=== PATIENT | female | born 1955 | race Two or more races ===

== ENCOUNTER 2024-05-06 10:24 | Outpatient (RCR) | payer MEDICARE, BC, SELFPAY ==
--- NOTE | 2024-05-06 12:51 | PT.OIERPT ---
PT OP Initial Eval Patient Information Outpatient Physical Therapy Treatment Date: 05/06/24 Visit Reasons: Right ring finger surgery Medical Diagnosis: M19.041 Treatment Dx #1: Right Ring Finger Mobility Defcits Treatment Dx #2: Right Hand Weakness Start of Care: 05/06/24 Date of Onset: 03/12/24 Smoking Status Smoking Status: Never smoker Initial Assessment Subjective: Pt is a 68 y/o female s/p right ring finger fusion and cyst removal 03/12/24. Pt still has pain (6/10) with activities. Pt has limitation with gripping, lifting, chores, self care, cooking, cleaning, and performing recreational activities. Objective: Right Wrist AROM: all motions are WNL Right 4th Digit AROM MCP: 69 deg PIP: -46 deg DIP: neutral Liaison Officer Strength L: 63 lbs R: 51 lbs Right Wrist MMTs: grossly 3+/5 Assessment: Pt demonstrate right hand mobility and strength deficits s/p ring finger fusion leading to difficulty with ADLs. Pt will benefit from physical therapy to increase ROM, strength, and work on hand dexterity. Short Term and Senior Living Goals 1) Increase right 4th digit flexion AROM WFL in 6 wks to be able to make a fist 2) Increase right solar pool heating installer strength to 55 lbs in 6 wks to be able to perform chores 3) Decrease hand pain to 2/10 in 6 wks to be able to perform recreational activities 4) Increase right wrist MMTs grossly to 4/5 in 6 wks to be able to perform self care activities 5) Indep with HEP Treatment Plan 1) Manual Therapy 2) Therapeutic Activities 3) Therapeutic Exercises 4) Modalities (ice, heat) Frequency and Duration: 2 x wk for 6 wks Certification Dates: 05/06/24 to 08/06/24 Procedure Charges OP PT Eval Mod Complex 30 minutes: Yes
== END 2024-05-11 23:59 | disposition home or self-care (01) ==
LOC: CPTX 10:24
DX: M79.644 Pain in right finger(s) (principal); R53.1 Weakness; Z98.890 Other specified postprocedural states; M19.041 Primary osteoarthritis, right hand
CPT/HCPCS: 97162

== ENCOUNTER 2024-05-30 10:30 | Outpatient (RCR) | payer MEDICARE, BC, SELFPAY ==
--- NOTE | 2024-05-14 10:39 | PT.ODAYNRPT ---
PT Outpatient Daily Note OP Daily Note Outpatient Physical Therapy Treatment Date: 05/14/24 Visit Reasons: RIGHT RING FINER SURGERY Subjective: Pt's hand turned black and blue over the weekend due to excessive cleaning and cooking from thanksgiving. Objective: Please see flow chart for list of ther ex performed Assessment: tolerate exercises performed today. cues to incorporate 4th digit with all hand exercises to improve mobility Plan: Continue with PT Length of Time (minutes) of Treatment: 30 Minutes Procedure Charges Therapeutic Exercise 30 minutes: Yes
--- NOTE | 2024-05-16 11:39 | PTNOTE_ITS ---
PT Outpatient Daily Note OP Daily Note Outpatient Physical Therapy Treatment Date: 05/16/24 Visit Reasons: RIGHT RING FINER SURGERY Subjective: Pt reports R finger stiffness and pain. Objective: Please see flow sheet for ther ex list. Assessment: Performed PROM to 4th digit of R hand into flexion, mobility limited due to pain response. Plan: Continue with POc. Length of Time (minutes) of Treatment: 30 Minutes COMPRESSED GAS EQUIPMENT MECHANIC Service Modifier Method I: Divide the number of min of care provided by the COMPRESSED GAS EQUIPMENT MECHANIC/LELO by the total min of care provided then multiply by 100. If greater than 11 percent modifier is required. Method II: Divide the total time of care provided to patient by 10 (round to the nearest whole number) and add 1 min. to set the minimum time requirement. If treatment total was 60 min., then 10% of 6 min PT CQ modifier applied: CQ Modifier applied Procedure Charges Therapeutic Exercise 30 minutes: Yes
--- NOTE | 2024-05-21 09:55 | PTNOTE_ITS ---
PT Outpatient Daily Note OP Daily Note Outpatient Physical Therapy Treatment Date: 05/21/24 Visit Reasons: RIGHT RING FINER SURGERY Subjective: Pt's finger feels better. Pt notice she can hold light objects longer. Objective: Please see flow chart for list of ther ex performed Assessment: progressing patient to higher resistance with all hand exercises with good t olerance. Minimal changes with 4th digit PIP flexion AROM Plan: Continue with PT Length of Time (minutes) of Treatment: 30 Minutes Procedure Charges Therapeutic Exercise 30 minutes: Yes
--- NOTE | 2024-05-23 11:36 | PT.ODAYNRPT ---
PT Outpatient Daily Note OP Daily Note Outpatient Physical Therapy Treatment Date: 05/23/24 Visit Reasons: RIGHT RING FINER SURGERY Subjective: Pt reports finger was sore after last session. Objective: Please see flow sheet for ther ex list. Assessment: Interventions completed with short rest breaks in between exercise to accommodate reported soreness. Plan: Continue with POC. Length of Time (minutes) of Treatment: 30 Minutes TURRET LATHE SET UP OPERATOR Service Modifier Method I: Divide the number of min of care provided by the TURRET LATHE SET UP OPERATOR/LELO by the total min of care provided then multiply by 100. If greater than 11 percent modifier is required. Method II: Divide the total time of care provided to patient by 10 (round to the nearest whole number) and add 1 min. to set the minimum time requirement. If treatment total was 60 min., then 10% of 6 min PT CQ modifier applied: CQ Modifier applied Procedure Charges Therapeutic Exercise 30 minutes: Yes
--- NOTE | 2024-05-28 11:41 | PT.ODAYNRPT ---
PT Outpatient Daily Note OP Daily Note Outpatient Physical Therapy Treatment Date: 05/28/24 Visit Reasons: RIGHT RING FINER SURGERY Subjective: Pt c/o finger stiffness. Objective: Please see flow sheet for ther ex list. Assessment: High pain response with PROM. Plan: Continue with pOC. Length of Time (minutes) of Treatment: 30 Minutes EMBOSSING CALENDER OPERATOR Service Modifier Method I: Divide the number of min of care provided by the EMBOSSING CALENDER OPERATOR/SECURITY SYSTEMS ENGINEER by the total min of care provided then multiply by 100. If greater than 11 percent modifier is required. Method II: Divide the total time of care provided to patient by 10 (round to the nearest whole number) and add 1 min. to set the minimum time requirement. If treatment total was 60 min., then 10% of 6 min PT CQ modifier applied: CQ Modifier applied Procedure Charges Therapeutic Exercise 30 minutes: Yes
--- NOTE | 2024-05-30 11:00 | PT.ODAYNRPT ---
PT Outpatient Daily Note OP Daily Note Outpatient Physical Therapy Treatment Date: 05/30/24 Visit Reasons: RIGHT RING FINER SURGERY Subjective: Pt reports finger felt more flexible after last session. Objective: Please see flow sheet for ther ex list. Assessment: Pt demonstrated improved tolerance with PROM of R 4th digit today. Plan: Continue with poC. Length of Time (minutes) of Treatment: 30 Minutes AUDIOVISUAL AIDS TECHNICIAN Service Modifier Method I: Divide the number of min of care provided by the AUDIOVISUAL AIDS TECHNICIAN/CEMENT FINISHER HELPER by the total min of care provided then multiply by 100. If greater than 11 percent modifier is required. Method II: Divide the total time of care provided to patient by 10 (round to the nearest whole number) and add 1 min. to set the minimum time requirement. If treatment total was 60 min., then 10% of 6 min PT CQ modifier applied: CQ Modifier applied Procedure Charges Therapeutic Exercise 30 minutes: Yes
== END 2024-06-11 23:59 | disposition home or self-care (01) ==
LOC: CPTX 10:30
DX: M79.644 Pain in right finger(s) (principal); R53.1 Weakness; Z98.890 Other specified postprocedural states
CPT/HCPCS: 97110

== ENCOUNTER 2024-07-04 10:30 | Outpatient (RCR) | payer MEDICARE, BC, SELFPAY ==
--- NOTE | 2024-06-13 11:12 | PT.ODAYNRPT ---
PT Outpatient Daily Note OP Daily Note Outpatient Physical Therapy Treatment Date: 06/13/24 Visit Reasons: Right ring finger surgery Subjective: Pt reports of slight improvement with finger ROM, however, still stiff at the surgical site. Pt has been able to start light cleaning and cooking with less limitation Objective: Right 4th Digit MCP and DIP flexion AROM: WFL Assessment: Pt educated that PROM in the 4th digit at this time will not be beneficial due to demonstrating functional ROM. Pt's continue limitation his at the PIP joint, however, joint mob and aggressive stretch should not be performed at this time due to possible irritation of the fusion. Pt gave verbal understanding. Pt's progress with ROM and strength is slow. Plan: Continue with PT Length of Time (minutes) of Treatment: 30 Minutes Procedure Charges Therapeutic Exercise 30 minutes: Yes
--- NOTE | 2024-06-18 11:51 | PT.ODAYNRPT ---
PT Outpatient Daily Note OP Daily Note Outpatient Physical Therapy Treatment Date: 06/18/24 Visit Reasons: Right ring finger surgery Subjective: Pt reports ring finger is stiff, making some progress with movement. Objective: Please see flow sheet for ther ex list. Assessment: Pt progress with ROm of PIP slow due to fusion but MCP and DIP ROM continue to improve. Plan: Continue with pOC. Length of Time (minutes) of Treatment: 30 Minutes STEAM AND GAS TURBINES ASSEMBLER Service Modifier Method I: Divide the number of min of care provided by the STEAM AND GAS TURBINES ASSEMBLER/INDUSTRIAL PSYCHOLOGY PROFESSOR by the total min of care provided then multiply by 100. If greater than 11 percent modifier is required. Method II: Divide the total time of care provided to patient by 10 (round to the nearest whole number) and add 1 min. to set the minimum time requirement. If treatment total was 60 min., then 10% of 6 min PT CQ modifier applied: CQ Modifier applied Procedure Charges Therapeutic Exercise 30 minutes: Yes
--- NOTE | 2024-06-25 11:14 | PTNOTE_ITS ---
PT Outpatient Daily Note OP Daily Note Outpatient Physical Therapy Treatment Date: 06/25/24 Visit Reasons: Right ring finger surgery Subjective: Pt reports R finger is doing ok, notices flexibility is improving with bending on distal and proximal joint on ring finger. Objective: Please see flow sheet for ther ex list. Assessment: Performed scar mobs, minimal TTP. Plan: Continue with pOC. BLIND SLAT STAPLING MACHINE OPERATOR Service Modifier Method I: Divide the number of min of care provided by the BLIND SLAT STAPLING MACHINE OPERATOR/LELO by the total min of care provided then multiply by 100. If greater than 11 percent modifier is required. Method II: Divide the total time of care provided to patient by 10 (round to the nearest whole number) and add 1 min. to set the minimum time requirement. If treatment total was 60 min., then 10% of 6 min PT CQ modifier applied: CQ Modifier applied Procedure Charges Therapeutic Exercise 30 minutes: Yes
--- NOTE | 2024-06-27 12:44 | PT.ODS1RPT ---
PT OP Progress/Discharge Note Date of Service: 06/27/24 Progress Note/DC Note Progress Note/Discharge Note: Progress Note Patient Information Visit Reasons: Right ring finger surgery Medical Diagnosis: M19.041 Treatment Dx #1: Right Ring Finger Mobility Deficits Treatment Dx #2: Right Hand Weakness Service Continue Service or Discharge: Continue Service Certification Date Certification Dates: 06/27/24 to 09/25/24 Status Subjective: Pt hand and finger feels much better. Pt had a follow up appt with specialist yesterday and wanted her to continue physical therapy due to progress noted. Pt has been able to start cooking, cleaning, perform self care, and light ADLs around the house. Pt still has limitation making full fist. Objective: Right Wrist AROM: all motions are WNL Right Wrist MMTs: grossly 4-/5 Right 4th Digit Flexion AROM MCP: 89 deg PIP: 53 deg DIP: 46 deg Observer Electrical Prospecting L: 63 lbs R: 59 lbs Assessment: Pt is progressing with 4th digit ROM and overall hand strength allowing her to resume light ADLs. Due to limited 4th digit PIP joint AROM and nature of the surgery leading to difficulty making a full fist. Pt has not met most goals set in therapy and will continue to benefit from physical therapy; thank you for your referrals. Plan: Continue with PT/POC and add 8 sessions (2 x wk for 4 wks) Procedure Charges Therapeutic Exercise 30 minutes: Yes
--- NOTE | 2024-07-02 14:03 | PT.ODAYNRPT ---
PT Outpatient Daily Note OP Daily Note Outpatient Physical Therapy Treatment Date: 07/02/24 Visit Reasons: Right ring finger surgery Subjective: Pt's hand is better and wants to continue with physical therapy. Objective: Please see flow chart for list of ther ex performed Assessment: small progress noted with finger flexion PROM post stretching. Plan: Continue with PT Length of Time (minutes) of Treatment: 30 Minutes Procedure Charges Therapeutic Exercise 30 minutes: Yes
--- NOTE | 2024-07-04 10:59 | PT.ODAYNRPT ---
PT Outpatient Daily Note OP Daily Note Outpatient Physical Therapy Treatment Date: 07/04/24 Visit Reasons: Right ring finger surgery Subjective: Pt's finger slight improved, however, still unable to make a complete fist yet. Pt is exhausted today due to cooking breakfast for her son-in-law this morning. Objective: Please see flow chart for list of ther ex performed Assessment: minimal changes noted in the PIP joint. Pt slight had difficulty tolerating finger flexion stretch at the SIP joint due to pain. Pt was able to manage instructed reps Plan: Continue with PT Length of Time (minutes) of Treatment: 30 Minutes Procedure Charges Therapeutic Exercise 30 minutes: Yes
== END 2024-07-12 23:59 | disposition home or self-care (01) ==
LOC: CPTX 10:30
DX: M79.644 Pain in right finger(s) (principal); R53.1 Weakness; M19.041 Primary osteoarthritis, right hand
CPT/HCPCS: 97110

== ENCOUNTER 2024-10-03 13:00 | Outpatient (RCR) | payer MEDICARE, BC, SELFPAY ==
--- NOTE | 2024-09-17 13:31 | PTNOTE_ITS ---
PT OP Initial Eval Patient Information Outpatient Physical Therapy Treatment Date: 09/17/24 Visit Reasons: Right ring finger hand pain Medical Diagnosis: M19.041; M79.641 Treatment Dx #1: Right 4th Digit Mobility Deficits Treatment Dx #2: Right Hand Pain Start of Care: 09/17/24 Date of Onset: 03/22/24 Smoking Status Smoking Status: Never smoker Initial Assessment Subjective: Pt is a 69 y/o female s/p right 4th digit fusion 03/22/25. Pt still has pain (5/10) with weakness leading to difficulty with ADLs. Pt has limitation with driving, gripping, lifting, chores, self care, and taking care of her children. Objective: Right Wrist AROM: all motions are WNL Right Wrist MMTs: grossly 3+/5 Right 4th Digit Flexion AROM MCP:76 deg PIP: -35 deg DIP: 56 deg Literacy Coordinator Strength L: 61 lbs R: 51 lbs Assessment: Pt demonstrate 4th digit mobility deficits with weakness leading to difficulty with ADLs. Pt will benefit from physical therapy to increase strength and work on hand dexterity. Short Term and Residential Goals 1) Increase right steamtable worker strength to 56 lbs in 6 wks to be able to perform gripping activities 2) Decrease hand pain to 2/10 in 6 wks to be able to perform recreational activities 3) Increase right wrist MMTs grossly 4-/5 in 6 wks to be able to lift grandkids 4) Indep with HEP Treatment Plan 1) Manual Therapy 2) Therapeutic Activities 3) Therapeutic Exercises 4) Modalities (ice, heat) Frequency and Duration: 2 x wk for 6 wks Certification Dates: 09/17/24 to 12/17/24 Procedure Charges OP PT Eval Mod Complex 30 minutes: Yes
--- NOTE | 2024-09-24 14:24 | PT.ODAYNRPT ---
PT Outpatient Daily Note OP Daily Note Outpatient Physical Therapy Treatment Date: 09/24/24 Visit Reasons: Right ring finger hand pain Subjective: Pt reports R finger is stiff and does not her [facility] is where she would like. Pt shared that she dropped a gallon of milk recently. Objective: Please see flow sheet for ther ex list. Assessment: Performed PROM of 4th digit, hard end feel in PIP joint. Plan: Continue with POC. Length of Time (minutes) of Treatment: 30 Minutes Procedure Charges Therapeutic Exercise 30 minutes: Yes
--- NOTE | 2024-09-26 14:57 | PT.ODAYNRPT ---
PT Outpatient Daily Note OP Daily Note Outpatient Physical Therapy Treatment Date: 09/26/24 Visit Reasons: Right ring finger hand pain Subjective: Pt reports finger is stiff. As per pt she had follow up with surgeon cancer genetics assistant who is content with current progress. Objective: Please see flow sheet for ther ex list. Assessment: Progressing functional strengthening and stretches. Plan: Continue with pOC. Length of Time (minutes) of Treatment: 30 Minutes EMBROIDERY FINISHER Service Modifier Method I: Divide the number of min of care provided by the EMBROIDERY FINISHER/LELO by the total min of care provided then multiply by 100. If greater than 11 percent modifier is required. Method II: Divide the total time of care provided to patient by 10 (round to the nearest whole number) and add 1 min. to set the minimum time requirement. If treatment total was 60 min., then 10% of 6 min PT CQ modifier applied: CQ Modifier applied Procedure Charges Therapeutic Exercise 30 minutes: Yes
--- NOTE | 2024-10-01 13:45 | PT.ODAYNRPT ---
PT Outpatient Daily Note OP Daily Note Outpatient Physical Therapy Treatment Date: 10/01/24 Visit Reasons: Right ring finger hand pain Subjective: Pt's finger is stiff and dropped a gallon of milk a few days ago due to hand weakness Objective: Please see flow chart for list of ther ex performed Assessment: tolerate exercises with minimal pain. minimal progress with 4th digit flexion AROM noted post PT session Plan: Continue with PT Length of Time (minutes) of Treatment: 30 Minutes Procedure Charges Therapeutic Exercise 30 minutes: Yes
--- NOTE | 2024-10-03 14:52 | PT.ODAYNRPT ---
PT Outpatient Daily Note OP Daily Note Outpatient Physical Therapy Treatment Date: 10/03/24 Visit Reasons: Right ring finger hand pain Subjective: Pt's finger stiff. Minimal changes in ROM. Objective: Please see flow chart for list of ther ex performed Assessment: minimal changes with 4th finger ROM post PROM and stretch noted. Plan: Continue with PT Length of Time (minutes) of Treatment: 30 Minutes Procedure Charges Therapeutic Exercise 30 minutes: Yes
== END 2024-10-09 23:59 | disposition home or self-care (01) ==
LOC: CPTX 13:00
DX: M79.641 Pain in right hand (principal); R53.1 Weakness; M19.041 Primary osteoarthritis, right hand; Z98.890 Other specified postprocedural states
CPT/HCPCS: 97110; 97162

== ENCOUNTER 2024-11-08 13:30 | Outpatient (RCR) | payer MEDICARE, BC, SELFPAY ==
--- NOTE | 2024-10-10 13:21 | PT.ODAYNRPT ---
PT Outpatient Daily Note OP Daily Note Outpatient Physical Therapy Treatment Date: 10/10/24 Visit Reasons: RT hand RT finger Subjective: Pt reports R finger is doing ok, still stiff difficult to bend. Objective: Please see flow sheet for ther ex list. Assessment: Performed PROM to pt max tolerable range. Plan: Continue with POC. Length of Time (minutes) of Treatment: 30 Minutes MECHANIC WELDER TRUCK DRIVER Service Modifier Method I: Divide the number of min of care provided by the MECHANIC WELDER TRUCK DRIVER/LELO by the total min of care provided then multiply by 100. If greater than 11 percent modifier is required. Method II: Divide the total time of care provided to patient by 10 (round to the nearest whole number) and add 1 min. to set the minimum time requirement. If treatment total was 60 min., then 10% of 6 min PT CQ modifier applied: CQ Modifier applied Procedure Charges Therapeutic Exercise 30 minutes: Yes
--- NOTE | 2024-10-15 13:50 | PT.ODAYNRPT ---
PT Outpatient Daily Note OP Daily Note Outpatient Physical Therapy Treatment Date: 10/15/24 Visit Reasons: RT hand RT finger Subjective: Pt reports distal finger joint is more flexible today. Objective: Please see flow sheet for ther ex list. Assessment: Performed DIP and WCP flexion on 4th digit, pt tolerated well. Plan: Continue with poC. Length of Time (minutes) of Treatment: 30 Minutes PUBLIC HEALTH SPECIALIST Service Modifier Method I: Divide the number of min of care provided by the PUBLIC HEALTH SPECIALIST/CLINICAL SUPPORT NURSE by the total min of care provided then multiply by 100. If greater than 11 percent modifier is required. Method II: Divide the total time of care provided to patient by 10 (round to the nearest whole number) and add 1 min. to set the minimum time requirement. If treatment total was 60 min., then 10% of 6 min PT CQ modifier applied: CQ Modifier applied Procedure Charges Therapeutic Exercise 30 minutes: Yes
--- NOTE | 2024-10-21 14:26 | PT.ODAYNRPT ---
PT Outpatient Daily Note OP Daily Note Outpatient Physical Therapy Treatment Date: 10/21/24 Visit Reasons: RT hand RT finger Subjective: Pt's finger is better after the wrapped with heat and will like to start off with the heat. Pt's finger is slowly being and improving. Objective: Please see flow chart for list of ther ex performed Assessment: slow progress with finger flexion AROM. pre-heat with fingers wrapped into flexion allow patient to tolerate PROM and passive stretching more. Plan: Continue with PT Length of Time (minutes) of Treatment: 30 Minutes Procedure Charges Therapeutic Exercise 15 minutes: Yes Manual Length Control Tester 15 minutes: Yes
--- NOTE | 2024-10-24 14:48 | PT.ODAYNRPT ---
PT Outpatient Daily Note OP Daily Note Outpatient Physical Therapy Treatment Date: 10/24/24 Visit Reasons: RT hand RT finger Subjective: Pt reports finger is feeling better today, can move it a little more. Objective: Please see flow sheet for ther ex list. Assessment: Pt demonstrates improved ROM of 4th digit today, continued with manual stretches to pt tolerance. Plan: Continue with POC. Length of Time (minutes) of Treatment: 30 Minutes Procedure Charges Therapeutic Exercise 30 minutes: Yes
--- NOTE | 2024-10-29 16:09 | PT.ODAYNRPT ---
PT Outpatient Daily Note OP Daily Note Outpatient Physical Therapy Treatment Date: 10/29/24 Visit Reasons: RT hand RT finger Subjective: Pt reports flexibility of finger is progressing. Objective: Please see flow sheet for ther ex list. Assessment: Continue focus on restoring ROM of 4th digit. Plan: Continue with pOC. Length of Time (minutes) of Treatment: 30 Minutes Procedure Charges Therapeutic Exercise 30 minutes: Yes
--- NOTE | 2024-10-31 14:05 | PTNOTE_ITS ---
PT Outpatient Daily Note OP Daily Note Outpatient Physical Therapy Treatment Date: 10/31/24 Visit Reasons: RT hand RT finger Subjective: Pt reports improvement with R digit flexion. Objective: Please see flow sheet for ther ex list. Assessment: Pt ROM of 4th digit DIP into flexion continues to improve. Plan: PT has one visit left, assess for note. Length of Time (minutes) of Treatment: 30 Minutes PROFESSIONAL NURSING ASSISTANT Service Modifier Method I: Divide the number of min of care provided by the PROFESSIONAL NURSING ASSISTANT/LELO by the total min of care provided then multiply by 100. If greater than 11 percent modifier is required. Method II: Divide the total time of care provided to patient by 10 (round to the nearest whole number) and add 1 min. to set the minimum time requirement. If treatment total was 60 min., then 10% of 6 min PT CQ modifier applied: CQ Modifier applied Procedure Charges Therapeutic Exercise 30 minutes: Yes
--- NOTE | 2024-11-08 13:54 | PTNOTE_ITS ---
PT OP Progress/Discharge Note Date of Service: 11/08/24 Progress Note/DC Note Progress Note/Discharge Note: DC Note Patient Information Visit Reasons: RT hand RT finger Medical Diagnosis: M19.041; M79.641 Treatment Dx #1: Right 4th Digit Mobility Deficits Treatment Dx #2: Right Hand Pain Service Continue Service or Discharge: Discharge Discharge Date: 11/08/24 Status Subjective: Pt's hand is better and does not have any further concerns. Pt has been able to hotel front desk clerk, lifting, perform chores, and recreational activities. Pt has a follow up appt with doctor in November. Objective: Right Wrist AROM: all motions are WNL Right Wrist MMTs: grossly 4/5 Right 4th Digit Flexion AROM MCP: 90 deg PIP: -35 deg DIP: 60 deg Process Expert Strength L: 61 lbs R: 56 lbs Assessment: Pt demonstrate slight improvement with 4th digit AROM and hotel front desk clerk strength allowing her to perform ADLs, chores, hotel front desk clerk, and lift with minimal limitation. Pt has plateau towards goals and will no longer benefit from physical therapy. Pt was instructed on HEP last session and educated to continue exercises to maintain overall mobility. Pt performed all exercises safely, thank you for your referrals. Plan: D/C home with HEP and follow up with MD [facility] Procedure Charges Therapeutic Exercise 30 minutes: Yes
== END 2024-11-09 23:59 | disposition home or self-care (01) ==
LOC: CPTX 13:30
DX: M79.644 Pain in right finger(s) (principal); M79.641 Pain in right hand; R53.1 Weakness; Z98.890 Other specified postprocedural states; M19.041 Primary osteoarthritis, right hand
CPT/HCPCS: 97110; 97140

== ENCOUNTER → 2025-01-08 | Outpatient (CLI) | payer MEDICARE, BC, SELFPAY ==
[2025-01-08 13:04] LABS: Misc Send Out* See Sep Rpt
[2025-01-08 13:19] LABS: Basophils # (Auto) 0.0 Thou/mm3 (0.0-0.2); Basophils % (Auto) 1 % (0-2.5); Eosinophils # (Auto) 0.2 Thou/mm3 (0.0-0.5); Eosinophils % (Auto) 4 % (0-10); Hematocrit 33.8 % (36.0-46.0); Hemoglobin 10.3 g/dL (12.0-16.0); Immature Granulocytes Auto 0.01 Thou/mm3 (0.00-0.00); Lymphocytes # (Auto) 1.9 Thou/mm3 (1.0-4.8); Lymphocytes % (Auto) 38 % (10-50); Mean Corpuscular HGB Conc 30.5 g/dl (31.0-37.0); Mean Corpuscular Hemoglobin 24.4 pg (25.0-35.0); Mean Corpuscular Volume 80 fL (80-100); Monocytes # (Auto) 0.5 Thou/mm3 (0.0-0.8); Monocytes % (Auto) 10 % (0-12); Neutrophils # (Auto) 2.4 Thou/mm3 (1.8-7.7); Neutrophils % (Auto) 47 % (37-80); Nucleated Red Blood Cell # 0.00 Thou/mm3 (0.00-0.00); Nucleated Red Blood Cell % 0 /100 WBC (0); Platelet Count 180 Thou/mm3 (140-440); RDW Standard Deviation 46.6 fL (36.4-46.3); Red Blood Count 4.22 Miln/mm3 (4.00-5.20); White Blood Count 5.0 Thou/mm3 (3.6-11.0)
[2025-01-08 13:30] LABS: Glucose Estimated Average 120 mg/dL (80-131); Hemoglobin A1C 5.8 % Hgb (4.8-6.0)
[2025-01-08 13:39] LABS: Amphetamine/Methamp Scrn,U Negative (Negative); Barbiturate Screen,Urine Negative (Negative); Benzodiazepines Screen,Urine Negative (Negative); Benzoylecgonine Screen, Ur Negative (Negative); Fentanyl Screen,Urine Negative (Negative); Opiate Screen,Urine Negative (Negative); THC Screen,Urine Negative (Negative)
[2025-01-08 13:44] LABS: Alanine Aminotransferase 14 U/L (10-49); Albumin, Serum 3.6 gm/dL (3.4-4.8); Albumin/Globulin Ratio 1.1 (1.2-2.2); Alkaline Phosphatase 56 U/L (46-116); Anion Gap 9 (7-16); Aspartate Amino Transferase 31 U/L (0-34); BUN/Creatinine Ratio 11 Ratio (12-20); Bilirubin,Total 1.4 mg/dL (0.3-1.2); Blood Urea Nitrogen 9 mg/dL (9-23); Calcium 8.5 mg/dL (8.3-10.6); Calcium (Corrected) 8.8 mg/dL (8.5-10.1); Carbon Dioxide 26.5 mMol/L (20.0-31.0); Cardiac Risk Estimate 3.1 RATIO (3.7-5.6); Chloride 108 mMol/L (98-107); Cholesterol 168 mg/dL (132-200); Creatinine (Component) 0.8 mg/dL (0.6-1.3); Globulin 3.3 gm/dL (2.3-3.5); Glucose 110 mg/dL (74-106); HDL Cholesterol 54 mg/dL (40-60); LDL Cholesterol,Calculated 100 mg/dL (0-130); Osmolality,Calculated 284 (275-295); Potassium 3.8 mMol/L (3.4-5.1); Sodium 143 mMol/L (136-145); Thyroid Stimulating Hormone 10.37 uIU/mL (0.55-4.78); Total Protein 6.9 gm/dL (5.7-8.2); Triglycerides 68 mg/dL (30-150); eGFR > 60 See Note
== END | disposition home or self-care (01) ==
LOC: COPL 12:29
PROVIDERS: PCP Student in an Organized Health Care Education/Training Program; Referring Provider Student in an Organized Health Care Education/Training Program; Visit Provider Student in an Organized Health Care Education/Training Program
DX: E03.9 Hypothyroidism, unspecified (principal); I10 Essential (primary) hypertension; M15.0 Primary generalized (osteo)arthritis
CPT/HCPCS: 36415; 80053; 80061; 80307; 83036; 84443; 85025

== ENCOUNTER → 2025-01-31 | Outpatient (CLI) | payer MEDICARE, BC, SELFPAY ==
[2025-01-31 13:12] LABS: Basophils # (Auto) 0.0 Thou/mm3 (0.0-0.2); Basophils % (Auto) 0 % (0-2.5); Eosinophils # (Auto) 0.0 Thou/mm3 (0.0-0.5); Eosinophils % (Auto) 0 % (0-10); Hematocrit 36.4 % (36.0-46.0); Hemoglobin 11.2 g/dL (12.0-16.0); Immature Granulocytes Auto 0.03 Thou/mm3 (0.00-0.00); Lymphocytes # (Auto) 1.2 Thou/mm3 (1.0-4.8); Lymphocytes % (Auto) 18 % (10-50); Mean Corpuscular HGB Conc 30.8 g/dl (31.0-37.0); Mean Corpuscular Hemoglobin 25.0 pg (25.0-35.0); Mean Corpuscular Volume 81 fL (80-100); Monocytes # (Auto) 0.4 Thou/mm3 (0.0-0.8); Monocytes % (Auto) 6 % (0-12); Neutrophils # (Auto) 4.8 Thou/mm3 (1.8-7.7); Neutrophils % (Auto) 75 % (37-80); Nucleated Red Blood Cell # 0.00 Thou/mm3 (0.00-0.00); Nucleated Red Blood Cell % 0 /100 WBC (0); Platelet Count 228 Thou/mm3 (140-440); RDW Standard Deviation 47.6 fL (36.4-46.3); Red Blood Count 4.48 Miln/mm3 (4.00-5.20); White Blood Count 6.4 Thou/mm3 (3.6-11.0)
[2025-01-31 13:23] LABS: Iron 24 mcg/dL (50-170); Percent Iron Saturation 5 % (20-55); Total Iron Binding Capacity 412 mcg/dL (250-425); Unsaturated Iron Binding 388 (225-295)
[2025-01-31 13:27] LABS: Folate 15.67 ng/mL (>5.38); Vitamin B12 425 pg/mL (211-911)
[2025-01-31 13:28] LABS: Free T4 (Free Thyroxine) 1.19 ng/dL (0.89-1.76); Thyroid Stimulating Hormone 2.95 uIU/mL (0.55-4.78)
== END | disposition home or self-care (01) ==
LOC: COPL 11:49
PROVIDERS: PCP Student in an Organized Health Care Education/Training Program; Referring Provider Student in an Organized Health Care Education/Training Program; Visit Provider Student in an Organized Health Care Education/Training Program
DX: D64.9 Anemia, unspecified (principal); E03.9 Hypothyroidism, unspecified
CPT/HCPCS: 36415; 82607; 82746; 83540; 83550; 84439; 84443; 85025